=== PATIENT | female | born 1990 | race Caucasian/White ===

== ENCOUNTER 2017-02-12 22:34 | Inpatient (IN) | payer OTHER ==
--- NOTE | ~2017-02-12 | DS ---
Discharge Summary [facility] [address] [place]. [address] NAME: ELIZABETH GRANT : 89 STATUS : DIS IN PAT#: [id number] AGE: 26 ADM/REG DATE : 02/13/17 MR#: [id number] REPORT SERV DATE: 02/16/17 DICTATED BY: SEAN VAUGHN IV DATE: 02/15/17 REPORT STATUS : Draft TRANSCRIBED BY: CARROLL DATE: 02/15/17 ADMISSION DATE: 02/13/2017 DISCHARGE DATE: 02/15/2017 ADMITTING DIAGNOSES: 1. Diabetic ketoacidosis, resolved. 2. Insulin-dependent diabetes mellitus under poor control as an outpatient. 3. Neuropathy. 4. Chronic pain syndrome. 5. Electrolyte abnormalities corrected. 6. Tobacco dependency. Smoking cessation provided with Habitrol patch, while the patient was in the hospital. CONSULTANTS: visual educator. PROCEDURES: The patient had bilateral lower extremity Dopplers failing to demonstrate any evidence for DVT. DISCHARGE MEDICATIONS: Medications at the time of discharge include her home medications of: 1. [place] 5/325 mg three times a day as needed. 2. Gabapentin 600 mg twice a day. 3. Insulin pump with rate adjustments made while the patient was hospitalized. HOSPITAL COURSE: The patient was admitted by the service cashier service on the 13 of February after presenting with elevated blood sugars, nausea, decreased oral intake, and malaise. She had a blood sugar of 461 on presentation with a bicarb of 5 and a blood gas pH of 7.12. The patient was placed on insulin pump with a DKA protocol instituted. She remained on the insulin pump through the morning of the with correction of her bicarbonate. We consulted assistant health educator who reviewed the diabetic diet, proper intake, and pump adjustments with the patient. On her settings, the patient had a drop in her blood sugars in the early interventionist hours of the for which adjustments were made. The patient had multiple electrolyte abnormalities to include magnesium phosphate and potassium all of which were corrected. It is still recommended the patient have an electrolyte panel obtained with the primary care next week. There was no evidence for an infectious process. Urine HCG was negative. The patient had a hemoglobin A1c of 13 indicating a poor outpatient control for which the patient was counseled. The patient additionally underwent counseling for smoking cessation. It was felt that she was stable for transfer home. The patient did have chronic pain syndrome for which she required significant narcotics initially that were weaned with counseling on the adverse use of narcotics. She was for her neuropathy given a prescription to cover for her Neurontin until she can be seen by her primary care physician. Narcotics will need to be obtained through her primary care. She had all equipment and medications available for her insulin pump. It was felt that she was stable for transfer home. She will currently to follow up with Dr. Farmer next week with electrolytes and Dr. Carrillo within next one to two weeks for followup of her diabetes mellitus. Discharge Summary [place] [id number] [facility] [place]. [address] NAME: ELIZABETH GRANT : 89 STATUS : DIS IN PAT#: [id number] AGE: 26 ADM/REG DATE : 02/13/17 MR#: [id number] REPORT SERV DATE: 02/16/17 DICTATED BY: SEAN VAUGHN IV DATE: 02/15/17 REPORT STATUS : Draft TRANSCRIBED BY: CARROLL DATE: 02/15/17 HARISH/CARROLL Sean Vaughn IV, M.D. / [id number] CC: MD Tania Lezama N.PKarma Carrillo M.D.
--- NOTE | ~2017-02-12 | HP ---
History And Physical [id number] [place]. [address] NAME: ELIZABETH GRANT : 89 STATUS : ADM IN [facility]#: [id number] AGE: 26 ADM/REG DATE : 02/13/17 MR#: [id number] REPORT SERV DATE: 02/13/17 DICTATED BY: LATISHA VERDIN DATE: 02/13/17 REPORT STATUS : Draft TRANSCRIBED BY: MODL DATE: 02/13/17 DATE OF ADMISSION: 02/13/2017 PULMONARY AND CRITICAL CARE MEDICINE ADMITTING HISTORY AND PHYSICAL PURPOSE FOR ADMISSION: Diabetic ketoacidosis. HISTORY OF PRESENT ILLNESS: Ms. Grant is a 26-year-old lady, who has underlying diabetes, which is poorly controlled. It is managed by a Dr. Oren Carrillo at [facility]. She currently has an insulin pump. Evidently, she was in the emergency department at [facility] yesterday with similar complaints, and the emergency department in [place] the day before that. She reports for the last two to three days, she has been feeling weaker with nausea and no energy, which she relates to her many previous episodes of DKA. She also complains of leg pain and tingling with intermittent episodes of swelling. Denies fevers, chills, chest pain, or other constitutional symptoms. PAST MEDICAL HISTORY: Diabetes with multiple previous episodes of DKA, managed by Dr. Carrillo at [facility]. SURGICAL HISTORY: D and C in the fall of 2015. SOCIAL HISTORY: Denies tobacco or alcohol or illicit drug use. FAMILY HISTORY: Noncontributory. HOME MEDICATIONS: Gabapentin 600 mg twice a day, [place] 5/325 up to eight hours as needed for pain, Humalog lispro subcutaneous for continuous insulin infusion. ALLERGIES: SEE LIST. MULTIPLE ALLERGIES TO ANALGESICS. REVIEW OF SYSTEMS: A comprehensive 13-point review of systems was completed and was negative except for those points described above in the history of present illness section of the dictation. ADVANCED DIRECTIVES/LIVING WILL: None. PHYSICAL EXAMINATION: VITAL SIGNS: Heart rate is 83, blood pressure is 89/54 with a MAP of 67, oxygen saturation is 98% on room air, her respiratory rate is 13 times per minute. She is afebrile. Relates her pain as a 9/10. GENERAL: The patient is awake alert and oriented. She is in mild distress, complaining of pain. A female, who is cooperative and interactive, smells of ketones. HEENT: Head are atraumatic, normocephalic. Pupils are equal, round, and reactive to light. Extraocular movements are intact. Ears, nose, and mouth are unremarkable except for a very dry oral mucosa with a lingual piercing, which is intact. NECK: Supple with an EJ in the right neck, which is flushing sufficiently. History And Physical [address] [place]. [address] NAME: ELIZABETH GRANT : 89 STATUS : ADM IN [facility]#: [id number] AGE: 26 ADM/REG DATE : 02/13/17 MR#: [id number] REPORT SERV DATE: 02/13/17 DICTATED BY: LATISHA VERDIN DATE: 02/13/17 REPORT STATUS : Draft TRANSCRIBED BY: MODArnie DATE: 02/13/17 LUNGS: Clear bilaterally. HEART: S1, S2. Brisk cap refill, distal extremities. ABDOMEN: Soft, nontender, nondistended with positive bowel sounds in all four quadrants. No appreciable peritoneal signs. : Exam was deferred. EXTREMITIES: Without clubbing, cyanosis, or edema. LYMPHATIC: Exam was unremarkable. NEUROLOGIC: Exam is grossly intact. PSYCHIATRIC: Exam was appropriate to situation. DIAGNOSTIC DATA: Personal review of diagnostic workup completed in the emergency department tonight. Her initial blood glucose was 529. Initial ABG showed a pH of 7.15, CO2 of 18 which was a compensation for her metabolic acidosis. Her bicarb on her BMP was initially 5. Renal function is normal. Her electrolytes are unremarkable with a potassium 3.9. A magnesium level was not obtained in the emergency department nor was the phosphorus level, large serum acetone. Urinalysis shows positive ketonuria, positive glucosuria, negative blood cells, negative leukocyte esterase, negative nitrite, negative beta-HCG. She has mild leukocytosis with a white blood cell count of 12.5 and an unremarkable differential. Normal H and H, normal platelet count. A repeat ABG shows a pH of 7.12, pCO2 of 27 with normal oxygenation and oxygen sat, a base excess of negative 19.3, and bicarb calculated at 8.5. A followup Accu-Chek once she was started on the insulin drip was 333. EKG from the emergency department was reviewed. Shows sinus tach, ventricular rate of 116, normal QT, and no ST elevation or depression by my review. Personal review of [facility] records reveal multiple previous admissions for DKA and multiple previous provider notes discussing difficulties with analgesia management. IMPRESSION: 1. Diabetic ketoacidosis as evidenced by hyperglycemia, ketonuria, large serum acetone in the blood, and metabolic acidosis. 2. Mild leukocytosis. 3. Mild hypoalbuminemia, potentially secondary to protein-calorie malnutrition. 4. Leg pain with paresthesias and intermittent periods of edema by history. 5. Chronic pain syndrome, requiring long-term narcotic therapy. PLAN: We have already admitted Ms. Grant to the CCU. She was started on fluid boluses and an insulin infusion by Dr. Neville in the emergency department. We will follow up her electrolytes and venous blood gases and adjust her insulin drip as needed while continuing hydration and electrolyte replacement as appropriate. We will check a procalcitonin to exclude infection but monitor her off antibiotics. At this point, she is afebrile and nontoxic appearing, and EKG has already confirmed no ST elevation or depression. We will also check a serum troponin level to definitively exclude cardiac ischemia. Her insulin pump is on hold until she is out of DKA. We will need to obtain records from Oren Carrillo's office, and we will manage her pain symptomatically on a scale including Tylenol for mild pain, oral narcotics for moderate pain, and IV Dilaudid for particularly severe pain. We will ultrasound her legs to exclude venous thromboembolism [facility] And Physical [address] [address] NAME: ELIZABETH GRANT : 89 STATUS : ADM IN PAT#: [id number] AGE: 26 ADM/REG DATE : 02/13/17 MR#: [id number] REPORT SERV DATE: 02/13/17 DICTATED BY: LATISHA VERDIN DATE: 02/13/17 REPORT STATUS : Draft TRANSCRIBED BY: CARROLL DATE: 02/13/17 prophylaxis. She has no indication for stress ulcer prophylaxis. We will keep her n.p.o. until she closes her anion gap. She is a full code. RANJANA/MODL Latisha Verdin MD / [id number]
[2017-02-12 22:02] LABS: BE (BASE EXCESS) -20.5 MEQ/L (0 +/- 2.5); CARBOXYHEMOGLOBIN 2.8 % (0-3); HCO3 (ACTUAL BICARBONATE) 6.1 MEQ/L (23-27); INSTRUMENT SERIAL # 8087; METHEMOGLOBIN 0.3 % (0-3); O2 CONTENT 20.1 VOL% (18-24); PCO2 (CO2 TENSION) 18 MMHG (35-45); PO2 (O2 TENSION) 111 MMHG (79-93); SAMPLE Arterial; pH 7.15 (7.37-7.43)
[2017-02-12 22:05] LABS: WBC (NOT ORDERED) (RFLEX) 0 (0-5)
[2017-02-12 22:06] LABS: BASOPHILS 0.3 %; BASOPHILS ABSOLUTE 0.04 10/3/uL (0.0-0.16); EOSINOPHILS 0.2 %; EOSINOPHILS ABSOLUTE 0.03 10/3/uL (0.0-0.53); HEMATOCRIT 44.3 % (36.0-48.0); HEMOGLOBIN 14.6 g/dL (12.0-16.0); IMMATURE GRANULOCYTES 0.4 %; IMMATURE GRANULOCYTES ABSOLUTE 0.05 10/3/uL (0.0-0.11); LYMPHOCYTES 19.7 %; LYMPHOCYTES ABSOLUTE 2.46 10/3/uL (0.67-4.30); MANUAL DIFF NO %; MEAN CORPUSCULAR VOLUME 94.1 fL (80-100); MEAN PLATELET VOLUME 11.8 fL (9.2-13.0); MONOCYTES 3.5 %; MONOCYTES ABSOLUTE 0.44 10/3/uL (0.21-1.20); NEUTROPHILS 75.9 %; NEUTROPHILS ABSOLUTE 9.46 10/3/uL (2.02-8.40); PLATELET COUNT 183 10/3/uL (150-400); RED CELL COUNT 4.71 10/6/uL (4.0-5.6); WHITE BLOOD CELLS 12.5 10/3/uL (4.5-10.5)
[2017-02-12 22:12] LABS: ASCORBIC ACID (UR NOT ORDER) NEG (NEG); BILIRUBIN, URINE NEGATIVE (NEG); ER URINALYSIS TAT 0 Hrs 09 Mins; KETONE, URINE 80 MG/DL (NEG); LEUKOCYTE ESTERASE(NOT OR NEG (NEG); NITRITE (URINE) NEG (NEG)
[2017-02-12 22:15] LABS: ACETONE LARGE
[2017-02-12 22:25] LABS: ALBUMIN 3.3 G/DL (3.5-5.0); BUN (BLOOD UREA NITROGEN) 14 MG/DL (6-23); CHLORIDE, SERUM 111 MMOL/L (96-112); CO2 (CARBON DIOXIDE) 5 MMOL/L (24-34); CREATININE 0.67 MG/DL (0.55-1.02); GFR AFRICAN AMERICAN 141 ML/MIN (>=60); GFR NON AFRICAN AMERICAN 121 ML/MIN (>=60); GLUCOSE, SERUM 461 MG/DL (60-99); POTASSIUM, SERUM 3.9 MMOL/L (3.5-5.3); SGOT(AST) 10 U/L (5-40); SGPT(ALT) 17 U/L (5-65); SODIUM, SERUM 141 MMOL/L (135-148); TOTAL BILIRUBIN 0.5 MG/DL (0-1.2)
[2017-02-12 22:26] LABS: A/G RATIO 1.1 (0.7-1.9); ALKALINE PHOSPHATASE 83 U/L (45-117); CALCIUM, SERUM 6.6 MG/DL (8.5-10.4); GLOBULIN 2.9 G/DL (2.5-4.1); TOTAL PROTEIN 6.2 G/DL (6.0-8.5)
[2017-02-12 22:32] LABS: BAND NEUTROPHILS 3 %; ER DIFF TAT 0 Hrs 30 Mins; LYMPHOCYTES 15 %; LYMPHOCYTES ABSOLUTE (CALC) 1.88 10/3/uL (0.67-4.30); MONOCYTES 4 %; NEUTROPHILS ABSOLUTE (CALC) 10.13 10/3/uL (2.02-8.40); PLATELET ESTIMATE ADQ (ADEQUATE); SEGMENTED NEUTROPHIL (0) 78 %; TOTAL NUCLEATED CELLS 100
[~2017-02-12 22:34] MED LIST: AUG875 PO; HUMALOG SC; LANTUS SC; NEUR300 PO; NEUR600 PO; PERCOCET1 TA4 PO; PLAVIX PO
[2017-02-12] MEDS ORDERED: NEUR600 PO (22:54)
[2017-02-12] MEDS ORDERED: NORCO1 TA1 PO (22:54)
[2017-02-12] MEDS ORDERED: HUMAPUMP SC (22:54)
[2017-02-13 00:05] LABS: BE (BASE EXCESS) -19.3 MEQ/L (0 +/- 2.5); CARBOXYHEMOGLOBIN 1.6 % (0-3); HCO3 (ACTUAL BICARBONATE) 8.5 MEQ/L (23-27); HEMOBLOGIN CONTENT 12.8 G/DL (12-16); INSTRUMENT SERIAL # 8087; METHEMOGLOBIN 0.3 % (0-3); O2 CONTENT 17.3 VOL% (18-24); PCO2 (CO2 TENSION) 27 MMHG (35-45); PO2 (O2 TENSION) 104 MMHG (79-93); SAMPLE Arterial; pH 7.12 (7.37-7.43)
[2017-02-13 06:11] LABS: CHLORIDE, SERUM 116 MMOL/L (96-112); CREATININE 0.73 MG/DL (0.55-1.02); GFR AFRICAN AMERICAN 132 ML/MIN (>=60); GFR NON AFRICAN AMERICAN 114 ML/MIN (>=60); PHOSPHORUS, SERUM 1.5 MG/DL (2.5-4.5); SODIUM, SERUM 142 MMOL/L (135-148); TROPONIN I <0.02 NG/ML (<0.05)
[2017-02-13 06:12] LABS: BUN (BLOOD UREA NITROGEN) 9 MG/DL (6-23); CALCIUM, SERUM 6.8 MG/DL (8.5-10.4); CO2 (CARBON DIOXIDE) 14 MMOL/L (24-34); GLUCOSE, SERUM 149 MG/DL (60-99)
[2017-02-13 07:38] LABS: PROCALCITONIN <0.05 ng/mL (<0.5)
[2017-02-13 10:16] LABS: HEMOGLOBIN 12.5 g/dL (12.0-16.0)
[2017-02-13 10:17] LABS: HEMATOCRIT 39.1 % (36.0-48.0)
[2017-02-13 10:28] LABS: BUN (BLOOD UREA NITROGEN) 7 MG/DL (6-23); CALCIUM, SERUM 7.2 MG/DL (8.5-10.4); CHLORIDE, SERUM 116 MMOL/L (96-112); CREATININE 0.75 MG/DL (0.55-1.02); GFR AFRICAN AMERICAN 128 ML/MIN (>=60); GFR NON AFRICAN AMERICAN 110 ML/MIN (>=60); PHOSPHORUS, SERUM 1.5 MG/DL (2.5-4.5); SODIUM, SERUM 141 MMOL/L (135-148)
[2017-02-13 10:33] LABS: CO2 (CARBON DIOXIDE) 15 MMOL/L (24-34); GLUCOSE, SERUM 119 MG/DL (60-99)
[2017-02-13 15:08] LABS: BE (BASE EXCESS) -11.7 MEQ/L (0 +/- 2.5); CARBOXYHEMOGLOBIN 0.3 % (0-3); HCO3 (ACTUAL BICARBONATE) 15.4 MEQ/L (23-27); INSTRUMENT SERIAL # 35151; METHEMOGLOBIN 1.8 % (0-3); PCO2 (CO2 TENSION) 39 MMHG (35-45); PO2 (O2 TENSION) 19 MMHG (79-93); pH 7.21 (7.37-7.43)
[2017-02-13 15:09] LABS: HEMOBLOGIN CONTENT 12.3 G/DL (12-16); SAMPLE Venous
[2017-02-13 15:52] LABS: BUN (BLOOD UREA NITROGEN) 4 MG/DL (6-23); CALCIUM, SERUM 7.3 MG/DL (8.5-10.4); CHLORIDE, SERUM 115 MMOL/L (96-112); CREATININE 0.52 MG/DL (0.55-1.02); GFR AFRICAN AMERICAN 153 ML/MIN (>=60); GFR NON AFRICAN AMERICAN 132 ML/MIN (>=60); GLUCOSE, SERUM 113 MG/DL (60-99); POTASSIUM, SERUM 3.9 MMOL/L (3.5-5.3); SODIUM, SERUM 145 MMOL/L (135-148)
[2017-02-13 15:54] LABS: CO2 (CARBON DIOXIDE) 19 MMOL/L (24-34); PHOSPHORUS, SERUM 2.4 MG/DL (2.5-4.5)
[2017-02-14 05:02] LABS: BASOPHILS 0.3 %; BASOPHILS ABSOLUTE 0.03 10/3/uL (0.0-0.16); EOSINOPHILS 1.3 %; EOSINOPHILS ABSOLUTE 0.12 10/3/uL (0.0-0.53); HEMATOCRIT 36.2 % (36.0-48.0); HEMOGLOBIN 12.1 g/dL (12.0-16.0); IMMATURE GRANULOCYTES 0.1 %; IMMATURE GRANULOCYTES ABSOLUTE 0.01 10/3/uL (0.0-0.11); LYMPHOCYTES 39.8 %; LYMPHOCYTES ABSOLUTE 3.54 10/3/uL (0.67-4.30); MEAN CORPUS HGB CONC 33.4 g/dL (32.0-36.0); MEAN CORPUSCULAR HEMOGLOB 30.6 pg (26.0-34.0); MEAN CORPUSCULAR VOLUME 91.4 fL (80-100); MEAN PLATELET VOLUME 11.5 fL (9.2-13.0); MONOCYTES 6.4 %; MONOCYTES ABSOLUTE 0.57 10/3/uL (0.21-1.20); NEUTROPHILS 52.1 %; NEUTROPHILS ABSOLUTE 4.62 10/3/uL (2.02-8.40); PLATELET COUNT 150 10/3/uL (150-400); RED CELL COUNT 3.96 10/6/uL (4.0-5.6); WHITE BLOOD CELLS 8.9 10/3/uL (4.5-10.5)
[2017-02-14 05:08] LABS: MANUAL DIFF NO %
[2017-02-14 05:24] LABS: ALBUMIN 2.8 G/DL (3.5-5.0); BUN (BLOOD UREA NITROGEN) 3 MG/DL (6-23); CALCIUM, SERUM 7.6 MG/DL (8.5-10.4); CHLORIDE, SERUM 114 MMOL/L (96-112); CO2 (CARBON DIOXIDE) 18 MMOL/L (24-34); CREATININE 0.48 MG/DL (0.55-1.02); GFR AFRICAN AMERICAN 157 ML/MIN (>=60); GFR NON AFRICAN AMERICAN 135 ML/MIN (>=60); PHOSPHORUS, SERUM 1.8 MG/DL (2.5-4.5); POTASSIUM, SERUM 3.4 MMOL/L (3.5-5.3); SODIUM, SERUM 143 MMOL/L (135-148)
[2017-02-14 05:28] LABS: GLUCOSE, SERUM 149 MG/DL (60-99)
[2017-02-14 09:53] LABS: BUN (BLOOD UREA NITROGEN) 2 MG/DL (6-23); CALCIUM, SERUM 7.7 MG/DL (8.5-10.4); CHLORIDE, SERUM 114 MMOL/L (96-112); CO2 (CARBON DIOXIDE) 19 MMOL/L (24-34); CREATININE 0.52 MG/DL (0.55-1.02); GFR AFRICAN AMERICAN 153 ML/MIN (>=60); GFR NON AFRICAN AMERICAN 132 ML/MIN (>=60); POTASSIUM, SERUM 3.4 MMOL/L (3.5-5.3); SODIUM, SERUM 144 MMOL/L (135-148)
[2017-02-14 09:54] LABS: GLUCOSE, SERUM 55 MG/DL (60-99)
[2017-02-14 17:22] LABS: BUN (BLOOD UREA NITROGEN) 2 MG/DL (6-23); CALCIUM, SERUM 7.8 MG/DL (8.5-10.4); CHLORIDE, SERUM 112 MMOL/L (96-112); CREATININE 0.51 MG/DL (0.55-1.02); GFR AFRICAN AMERICAN 154 ML/MIN (>=60); GFR NON AFRICAN AMERICAN 133 ML/MIN (>=60); POTASSIUM, SERUM 3.5 MMOL/L (3.5-5.3); SODIUM, SERUM 145 MMOL/L (135-148)
[2017-02-14 17:23] LABS: CO2 (CARBON DIOXIDE) 25 MMOL/L (24-34); GLUCOSE, SERUM 68 MG/DL (60-99); PHOSPHORUS, SERUM 2.9 MG/DL (2.5-4.5)
[2017-02-15 05:28] LABS: BASOPHILS 0.4 %; BASOPHILS ABSOLUTE 0.02 10/3/uL (0.0-0.16); EOSINOPHILS 1.3 %; EOSINOPHILS ABSOLUTE 0.07 10/3/uL (0.0-0.53); HEMATOCRIT 35.2 % (36.0-48.0); HEMOGLOBIN 11.8 g/dL (12.0-16.0); LYMPHOCYTES 54.6 %; LYMPHOCYTES ABSOLUTE 2.99 10/3/uL (0.67-4.30); MEAN CORPUS HGB CONC 33.5 g/dL (32.0-36.0); MEAN CORPUSCULAR HEMOGLOB 30.8 pg (26.0-34.0); MEAN CORPUSCULAR VOLUME 91.9 fL (80-100); MEAN PLATELET VOLUME 11.6 fL (9.2-13.0); MONOCYTES 9.1 %; NEUTROPHILS 34.6 %; PLATELET COUNT 127 10/3/uL (150-400); RBC DISTRIBUTION WIDTH 12.8 % (12.0-16.0); RED CELL COUNT 3.83 10/6/uL (4.0-5.6); WHITE BLOOD CELLS 5.5 10/3/uL (4.5-10.5)
[2017-02-15 05:30] LABS: MANUAL DIFF NO %
[2017-02-15 05:53] LABS: ALBUMIN 2.5 G/DL (3.5-5.0); BUN (BLOOD UREA NITROGEN) 3 MG/DL (6-23); CALCIUM, SERUM 7.6 MG/DL (8.5-10.4); CHLORIDE, SERUM 112 MMOL/L (96-112); CO2 (CARBON DIOXIDE) 26 MMOL/L (24-34); CREATININE 0.45 MG/DL (0.55-1.02); GFR AFRICAN AMERICAN 160 ML/MIN (>=60); GFR NON AFRICAN AMERICAN 138 ML/MIN (>=60); GLUCOSE, SERUM 112 MG/DL (60-99); PHOSPHORUS, SERUM 2.8 MG/DL (2.5-4.5); POTASSIUM, SERUM 3.3 MMOL/L (3.5-5.3); SODIUM, SERUM 147 MMOL/L (135-148)
[2017-03-09] MEDS ORDERED: HUMAPUMP SC (11:51)
[2017-03-09] MEDS ORDERED: NEUR400 PO ×2 (11:52)
[2017-06-22] MEDS ORDERED: CLEOCIN300 MG PO (14:37)
[2017-06-22] MEDS ORDERED: NEUR400 PO (14:38)
[2017-06-22] MEDS ORDERED: HUMALOG SC (14:39)
[2017-06-22] MEDS ORDERED: LANTUS SC (14:39)
[2017-06-25] MEDS ORDERED: NORCO1 TA1 PO (16:36)
[2017-06-25] MEDS ORDERED: HUMALOG SQ (16:38)
[2017-07-17] MEDS ORDERED: NEUR400 PO (22:42)
[2017-07-23] MEDS ORDERED: NEUR400 PO ×3 (13:14→13:15)
[2017-07-23] MEDS ORDERED: LEVAQUIN750 MG PO (13:21)
[2017-07-23] MEDS ORDERED: PERCOCET 10/3251 TAB PO (13:21)
[2017-07-23] MEDS ORDERED: IBU600 PO (13:24)
== END 2017-02-15 15:00 | disposition home or self-care (01) | DRG 638 ==
LOC: ER 22:34 → CCU 02-13 00:28
PROVIDERS: Emergency Medicine; Internal Medicine Critical Care Medicine
DX: E10.10 Type 1 diabetes mellitus with ketoacidosis without coma (principal); I47.2 Ventricular tachycardia; E46 Unspecified protein-calorie malnutrition; K31.84 Gastroparesis; E88.09 Other disorders of plasma-protein metabolism, not elsewhere classified; E83.39 Other disorders of phosphorus metabolism; E83.42 Hypomagnesemia; E10.43 Type 1 diabetes mellitus with diabetic autonomic (poly)neuropathy; Z96.41 Presence of insulin pump (external) (internal); G89.4 Chronic pain syndrome; F17.210 Nicotine dependence, cigarettes, uncomplicated; E87.6 Hypokalemia; E10.65 Type 1 diabetes mellitus with hyperglycemia; F41.9 Anxiety disorder, unspecified; F32.9 Major depressive disorder, single episode, unspecified; Z79.4 Long term (current) use of insulin
CPT/HCPCS: 36415; 36600; 71010; 80048; 80053; 80069; 81001; 82009; 82150; 82330; 82805; 82962; 83036; 83690; 83735; 84100; 84145; 84484; 84703; 85014; 85018; 85025; 86850; 86900; 86901; 87641; 93005; 93970; 96374; 96375; 99291; A9270-GY; C9113; J1170; J2405

== ENCOUNTER 2017-03-09 12:03 | Emergency (ER) | payer OTHER ==
--- NOTE | ~2017-03-09 | HP ---
History And Physical [place] [address] [facility] [place]. [address] NAME: ELIZABETH GRANT : 89 STATUS : [facility]#: [id number] AGE: 26 ADM/REG DATE : 03/09/17 MR#: [id number] REPORT SERV DATE: 03/10/17 DICTATED BY: SRI NUNO DATE: 03/09/17 REPORT STATUS : Draft TRANSCRIBED BY: CARROLL DATE: 03/09/17 DATE OF ADMISSION: 03/09/2017 REASON FOR ADMISSION: Diabetic ketoacidosis, mild. HISTORY: This is a 26-year-old white female, who has diabetes for about the last three years. She is followed by Dr. Oren Carrillo with very poor blood sugar control at home. She is on insulin pump. Her last bolus of insulin was at 1:35 a.m. when she took 7.2 units. She has a continuous infusion rate of a basal rate of 1.5 units/hour. She is not eating now, has not been offered anything to eat in the emergency room. She was given 2 L of IV fluid. Her blood sugar has come down from 1100 down to 293. She is not vomiting. She complains of some right-sided abdominal pain. CT scan of the abdomen and pelvis was negative. The patient did have a hemoglobin A1c of 13 during the time she was in the hospital previously. She has been counseled against taking narcotics in the past, although she had asked specifically for narcotic pain medication during the initial interview for admission here. PAST MEDICAL HISTORY: Diabetes with multiple hospitalizations and DKA. SOCIAL HISTORY: She is . Lives at home with her . Tobacco had been a problem in the past. No alcohol or illicit drug use noted on previous admission. FAMILY HISTORY: The patient is uncooperative and does not know of anything that runs in the family. REVIEW OF SYSTEMS: She complains of abdominal pain. Vomiting and nausea have cleared. She has the following medications listed though she is somewhat uncooperative and does not wish to consider eating at this point. HOME MEDICATIONS: Her home medications are as follows: Gabapentin 400 mg p.o. b.i.d. and 800 mg at lunch, Humalog by insulin pump. ALLERGIES: SHE SAYS THE FOLLOWING ALLERGIES, MORPHINE, KEFLEX, TRAMADOL, AND AN ADVERSE REACTION TO PHENERGAN AND KETOROLAC IN THE PAST. PHYSICAL EXAMINATION: GENERAL: White female, multiple tattoos, in no acute distress. HEENT: She has short hair. NECK: No bruit and without any JVD. CHEST: Clear to A and P. HEART: Regular S1, S2 without murmur, gallop, or click. ABDOMEN: Soft, nontender. Bowel sounds positive. History And Physical [address] [address] NAME: ELIZABETH GRANT : 89 STATUS : DEP ER PAT#: [id number] AGE: 26 ADM/REG DATE : 03/09/17 MR#: [id number] REPORT SERV DATE: 03/10/17 DICTATED BY: SRI NUNO DATE: 03/09/17 REPORT STATUS : Draft TRANSCRIBED BY: CARROLL DATE: 03/09/17 EXTREMITIES: Have no edema. Distal pulses are intact in dorsalis pedis and posterior tibial. NEUROLOGIC: She withdraws to plantar stimulation. Scada Technician is symmetric bilaterally. Coordination intact. She has no tremor. She is symmetric neurologically. She does not have any increased respiratory rate. VITAL SIGNS: Her respiratory rate on admission was 19, heart rate now 99 with examination, blood pressure of 112/30 from 96/57. ASSESSMENT: 1. Diabetic ketoacidosis. The patient has pulled her insulin pump off. We will go to multiple subcutaneous basal and bolus dosing interval. She last took her insulin at 0135 hours this morning taking 7.2 units. She did receive a low reservoir alarm at 0350 hours this morning, was aware that; however, thinks that it would run at least 12 hours on the low alarm. a. We are going to give her some IV D5 as she will no eat. Once she starts eating 50% of her diet, give her the D5 solution. We will add potassium phosphate to it. Recheck the phosphate level in the morning and repeat the urinalysis for ketones in the morning. 2. Right-sided abdominal pain with negative CT scan of the abdomen. 3. Diabetes type 1. 4. Neuropathy. PLAN: We will go to observation since her blood sugar is down to 293. Give the IV D5 carbohydrate source until she is able to eat. We will ambulate her pump's dosing with Levemir 36 units subcu now and q.24 hours of 5 units of NovoLog before each meal, holding if the blood sugar is less than 80 plus correction dose with sliding scale. DB/MODL Sri Nuno M.D. / [id number] CC: Yusuf Brito Jr, MD Marwan Moughrabi, N.P.
[~2017-03-09 12:03] MED LIST changes: +HUMAPUMP SC; +NEUR400 PO; +NORCO1 TA1 PO
[2017-03-09 12:09] LABS: INSTRUMENT SERIAL # 8087
[2017-03-09 12:10] LABS: ALLENS TEST Pos; BE (BASE EXCESS) -13.9 MEQ/L (0 +/- 2.5); CARBOXYHEMOGLOBIN 3.7 % (0-3); HCO3 (ACTUAL BICARBONATE) 11.8 MEQ/L (23-27); HEMOBLOGIN CONTENT 13.9 G/DL (12-16); METHEMOGLOBIN 0.2 % (0-3); O2 CONTENT 18.4 VOL% (18-24); PCO2 (CO2 TENSION) 28 MMHG (35-45); PO2 (O2 TENSION) 106 MMHG (79-93); SAMPLE Arterial; pH 7.24 (7.37-7.43)
[2017-03-09 12:37] LABS: BASOPHILS 0.5 %; BASOPHILS ABSOLUTE 0.05 10/3/uL (0.0-0.16); EOSINOPHILS 0.4 %; EOSINOPHILS ABSOLUTE 0.04 10/3/uL (0.0-0.53); HEMOGLOBIN 13.7 g/dL (12.0-16.0); IMMATURE GRANULOCYTES 0.3 %; IMMATURE GRANULOCYTES ABSOLUTE 0.03 10/3/uL (0.0-0.11); LYMPHOCYTES 23.9 %; LYMPHOCYTES ABSOLUTE 2.55 10/3/uL (0.67-4.30); MEAN CORPUS HGB CONC 33.4 g/dL (32.0-36.0); MEAN CORPUSCULAR HEMOGLOB 30.5 pg (26.0-34.0); MEAN CORPUSCULAR VOLUME 91.3 fL (80-100); MEAN PLATELET VOLUME 11.8 fL (9.2-13.0); MONOCYTES 5.8 %; MONOCYTES ABSOLUTE 0.62 10/3/uL (0.21-1.20); NEUTROPHILS 69.1 %; NEUTROPHILS ABSOLUTE 7.38 10/3/uL (2.02-8.40); RBC DISTRIBUTION WIDTH 13.4 % (12.0-16.0); RED CELL COUNT 4.49 10/6/uL (4.0-5.6)
[2017-03-09 12:38] LABS: ER CBC TAT 0 Hrs 07 Mins; MANUAL DIFF NO %; PLATELET COUNT 197 10/3/uL (150-400); WHITE BLOOD CELLS 10.7 10/3/uL (4.5-10.5)
[2017-03-09 12:45] LABS: ACETONE LARGE
[2017-03-09 12:52] LABS: ALKALINE PHOSPHATASE 94 U/L (45-117); CREATININE 0.91 MG/DL (0.55-1.02); GFR AFRICAN AMERICAN 101 ML/MIN (>=60); GFR NON AFRICAN AMERICAN 87 ML/MIN (>=60); SGOT(AST) 10 U/L (5-40); SGPT(ALT) 25 U/L (5-65); TOTAL BILIRUBIN 0.8 MG/DL (0-1.2)
[2017-03-09 12:53] LABS: A/G RATIO 1.1 (0.7-1.9); ALBUMIN 4.1 G/DL (3.5-5.0); BUN (BLOOD UREA NITROGEN) 21 MG/DL (6-23); CHLORIDE, SERUM 102 MMOL/L (96-112); CO2 (CARBON DIOXIDE) 16 MMOL/L (24-34); GLOBULIN 3.7 G/DL (2.5-4.1); GLUCOSE, SERUM 406 MG/DL (60-99); POTASSIUM, SERUM 4.7 MMOL/L (3.5-5.3); SODIUM, SERUM 137 MMOL/L (135-148); TOTAL PROTEIN 7.8 G/DL (6.0-8.5)
[2017-03-09 12:54] LABS: ASCORBIC ACID (UR NOT ORDER) NEG (NEG); BILIRUBIN, URINE NEGATIVE (NEG); ER URINALYSIS TAT 0 Hrs 15 Mins; KETONE, URINE 80 MG/DL (NEG); LEUKOCYTE ESTERASE(NOT OR NEG (NEG); NITRITE (URINE) NEG (NEG); WBC (NOT ORDERED) (RFLEX) < 1 (0-5)
[2017-06-22] MEDS ORDERED: CLEOCIN300 MG PO (14:37)
[2017-06-22] MEDS ORDERED: NEUR400 PO (14:38)
[2017-06-22] MEDS ORDERED: HUMALOG SC (14:39)
[2017-06-22] MEDS ORDERED: LANTUS SC (14:39)
[2017-06-25] MEDS ORDERED: NORCO1 TA1 PO (16:36)
[2017-06-25] MEDS ORDERED: HUMALOG SQ (16:38)
[2017-07-17] MEDS ORDERED: NEUR400 PO (22:42)
[2017-07-23] MEDS ORDERED: NEUR400 PO ×3 (13:14→13:15)
[2017-07-23] MEDS ORDERED: LEVAQUIN750 MG PO (13:21)
[2017-07-23] MEDS ORDERED: PERCOCET 10/3251 TAB PO (13:21)
[2017-07-23] MEDS ORDERED: IBU600 PO (13:24)
== END 2017-03-09 17:03 | disposition left against medical advice (07) ==
LOC: ER 12:03
PROVIDERS: Physician Assistant
DX: E13.10 Other specified diabetes mellitus with ketoacidosis without coma (principal); Z88.5 Allergy status to narcotic agent; Z88.6 Allergy status to analgesic agent; Z79.899 Other long term (current) drug therapy; Z79.4 Long term (current) use of insulin
CPT/HCPCS: 36600; 71010; 74176; 80053; 81001; 82009; 82805; 82962; 83690; 84703; 85025; 93005; 96374; 99285; A9270-GY; J2765